=== PATIENT | female | born 1975 | race Caucasian/White ===

== ENCOUNTER 2016-10-30 15:57 | Emergency (ER) | payer OTHER ==
--- NOTE | ~2016-10-30 | CT4 ---
[facility] A Service of [facility] & [facility] RADIOLOGY TEXT RESULTS PATIENT: DUONG HASSAN LOCATION: [facility] : 77 UNIT #: [id number] AGE: [address]: Angel Thompson MD SEX: F ORDER DR: [id number] [facility] [address] [place], [place] [address] [id number] MR#: [id number] #: [id number] NAME: DUONG HASSAN : 1975 SEX: F STUDY DATE/TIME: 10/30/2016 18:15 UNIT: [facility] ROOM: STUDY DESCRIPTION: CT Abd and Pelv Wo Cont Attending Physician: Angel Thompson M.D. Ordering Physician: Angel Thompson M.D. Primary Care Physician: Arias Palacios M.D. MEDICAL IMAGING REPORT This report is preliminary unless electronic signature is present EXAM Abdomen and pelvis CT without contrast HISTORY Abdominal pain for 3 days with nausea, mid and lower abdominal pain. No history of cancer. History of three C sections. TECHNIQUE CT abdomen and pelvis performed without IV or oral contrast media using urinary tract stone protocol. The lack of intravenous contrast media limits evaluation for pathology other than urinary tract calculus disease. This CT exam was performed with one or more of the following radiation dose reduction techniques: automatic exposure control, adjustment of mA and/or kV according to patient size, and iterative reconstruction. FINDINGS Probably mild cardiac enlargement partly seen. The noncontrast liver, gallbladder, spleen, adrenal glands, and pancreas are unremarkable. No intrarenal calculi are seen, and there is no hydronephrosis. There is no bladder calculus. There is no left ureteral calculus. There are several calcifications along the course of the right ureter. There is however no hydronephrosis or hydroureter appreciated. These calcifications might be phleboliths in the right ovarian vein versus less likely nonobstructing calculi. Please correlate for any clinical evidence of hematuria. Evaluation of the remainder of the pelvis shows some left colon diverticula but no CT evidence for diverticulitis. The appendix is radiographically normal. There is a fat-containing broad necked periumbilical hernia. There are small fat-containing inguinal hernias, STS. [facility] A Service of [facility] RADIOLOGY TEXT RESULTS PATIENT: DUONG HASSAN LOCATION: [facility] : 77 UNIT #: [id number] AGE: [address]: Angel Thompson MD SEX: F ORDER DR: left greater than right. There is nothing to suggest bowel obstruction. There are a few air-fluid levels in prominent small bowel loops but none is clearly distended and no obvious wall thickening on this unenhanced study. I suspect some colonic diverticula in the transverse colon region. Also again nothing to suggest diverticulitis. There is no free intraperitoneal air or drainable fluid collection appreciated. There are degenerative changes in the lumbar spine. A small amount of dependent atelectasis noted at the lung bases. IMPRESSION 1. Study is limited by the lack of IV and oral contrast media and was performed as a urinary tract stone protocol. 2. There is no evidence for intrarenal calculus or hydronephrosis. No hydroureter is seen. Several calcifications are seen along the course of the right ureter which might be phleboliths in the right ovarian vein. Less likely consideration would be nonobstructing ureteral calculi. Please correlate for any clinical evidence of hematuria. 3. The appendix is radiographically normal. 4. There is a small fat-containing periumbilical hernia and inguinal hernias, left greater than right. There is nothing to suggest bowel obstruction or free intraperitoneal air. 5. There are diverticula in the left colon and probably the transverse colon, but there is no CT evidence for diverticulitis. Dictated by... Lauren Magaña M.D. THIS IS AN ELECTRONICALLY VERIFIED REPORT Lauren Magaña M.D. at 10/31/2016 7:41 AM HERBER/horace TD: 10/30/2016 22:23 JOB #: [id number] MEDICAL IMAGING REPORT Page 1 of 1 COPY
[2016-10-30 16:59] LABS: URINE SOURCE CLEAN CATCH
[2016-10-30 17:04] LABS: BASOPHIL% 0.6 % (0-2.5); EOSINOPHIL# 0.1 X10e3 (0-0.7); EOSINOPHIL% 1.8 % (0.0-7.0); HEMATOCRIT 41.7 % (35.0-45.0); HEMOGLOBIN 13.7 gm/dL (12.0-16.0); LYMPHOCYTE% 32.8 % (17.0-45.0); MEAN CELL VOLUME 91.5 FL (83-96); MEAN CORPUSCULAR HEMOGLOBIN 30.1 PG (28-34); MEAN CORPUSCULAR HGB CONC 32.9 g/dL (30-36); MEAN PLATELET VOLUME 9.5 FL (6.5-11.5); MONOCYTE# 0.3 X10e3 (0-1.0); MONOCYTE% 5.3 % (3.0-12.0); NEUTROPHIL# 3.6 X10e3 (1.5-7.1); NEUTROPHIL% 59.5 % (40-75); PLATELET COUNT 179 X10e3 (140-420); RED BLOOD COUNT 4.56 X10e (3.90-5.30); RED CELL DISTRIBUTION WIDTH 13.8 % (11.0-15.5); WHITE BLOOD COUNT 6.1 X10e3 (4.0-10.5)
[2016-10-30 17:06] LABS: DIFF IND NO
[2016-10-30 17:06] LABS: URINE APPEARANCE CLEAR; URINE BILIRUBIN NEG (NEG); URINE BLOOD NEG (NEG); URINE COLOR YELLOW; URINE GLUCOSE NEG (NEG); URINE KETONE NEG (NEG); URINE LEUKOCYTE ESTERASE NEG (NEG); URINE NITRATE NEG (NEG); URINE PH 7.5 (5-8); URINE PROTEIN NEG (NEG); URINE SPECIFIC GRAVITY 1.019 (1.003-1.035); URINE UROBILINOGEN 0.2 MG/DL (NEG)
[2016-10-30 17:12] LABS: CULTURE INDICATED? NO
[2016-10-30 17:31] LABS: ALBUMIN SERUM 3.9 g/dL (3.5-5.0); ALKALINE PHOSPHATASE 38 U/L (32-92); ALT (SGPT) 22 U/L (10-40); AMYLASE 9 U/L (0-46); AST (SGOT) 19 U/L (10-42); BILIRUBIN,TOTAL 0.5 mg/dL (0.2-2.0); BLOOD UREA NITROGEN 9 mg/dL (9-23); CALCIUM SERUM 9.2 mg/dL (8.4-10.2); CARBON DIOXIDE 27 mmol/L (22-31); CHLORIDE 105 mmol/L (100-111); CREATININE SERUM 0.6 mg/dL (0.6-1.4); GLUCOSE FASTING 102 mg/dL (70-110); LIPASE 17 U/L (22-51); POTASSIUM 3.5 mmol/L (3.5-5.1); PROTEIN TOTAL SERUM 7.7 g/dL (6.0-8.3); SODIUM 140 mmol/L (135-145)
[2016-10-30 17:33] LABS: BILIRUBIN, DIRECT <0.1 mg/dL (0.0-0.2); BILIRUBIN,INDIRECT 0.4 mg/dL (0.0-0.9)
== END 2016-10-30 19:19 | disposition home or self-care (01) ==
LOC: CED 15:57
PROVIDERS: Emergency Medicine
DX: R10.10 Upper abdominal pain, unspecified (principal); R11.2 Nausea with vomiting, unspecified; Z88.0 Allergy status to penicillin
CPT/HCPCS: 36415; 74176; 80048; 80076; 81003; 82150; 83605; 83690; 84703; 85025; 96361; 96374; 96375; 99284; J1170; J2405